=== PATIENT | male | born 1990 | race Caucasian/White ===

== ENCOUNTER 2023-09-07 08:40 | Emergency (ER) | payer SELFPAY ==
[~2023-09-07] VITALS: Ht 175.3 cm; Wt 136.1 kg
[2023-09-07 08:41] VITALS: BP 145/68; PULSE 104; RESP 18; TEMP 98.5; O2SAT 95
[2023-09-07] MEDS: KETOROLAC 60 MG/2 ML VIAL IM ONE (09:15)
[2023-09-07 10:03] LABS: FLU A ANTIGEN negative (NEGATIVE); FLU B ANTIGEN negative (NEGATIVE)
[2023-09-07] MEDS ORDERED: NAPR-1704 PO (11:36)
[2023-09-07] MEDS ORDERED: TRAM-748 PO (11:36)
[2023-09-07 11:58] VITALS: BP 145/68; PULSE 104; RESP 18; TEMP 98.5; O2SAT 95
== END 2023-09-07 11:58 | disposition home or self-care (01) ==
LOC: MED 08:40
DX: M25.561 Pain in right knee (principal); Z20.822 Contact with and (suspected) exposure to COVID-19; E78.00 Pure hypercholesterolemia, unspecified; Z79.899 Other long term (current) drug therapy
CPT/HCPCS: 73562; 87426; 87804; 93971; 96372; 99285; J1885; Q0092